=== PATIENT | male | born 1985 | race Caucasian/White ===

== ENCOUNTER 2025-05-03 13:33 | Emergency (ER) | payer OTHER, SELFPAY ==
[2025-05-03 13:35] VITALS: BP 123/85; PULSE 88; RESP 18; TEMP 36.8; O2SAT 100; BMI 22.1
--- NOTE | 2025-05-03 14:04 | XR_ITS ---
Examination: Wrist, left 3 views Technique: Wrist AP, oblique, lateral 3 views Date and time of exam: May 03, 2025 1403 hours INDICATIONS: Injury to the wrist today, wrist pain FINDINGS: No acute fracture No dislocation No foreign body IMPRESSION: No acute fracture
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
== END 2025-05-03 14:55 | disposition home or self-care (01) ==
PROVIDERS: Emergency Provider Family Medicine
DX: S50.12XA Contusion of left forearm, initial encounter (principal); S60.212A Contusion of left wrist, initial encounter; S00.93XA Contusion of unspecified part of head, initial encounter; S19.9XXA Unspecified injury of neck, initial encounter; R51.9 Headache, unspecified; Y04.0XXA Assault by unarmed brawl or fight, initial encounter; Y92.149 Unspecified place in prison as the place of occurrence of the external cause
CPT/HCPCS: 70450; 70486; 72125; 73090; 73110; 99283